=== PATIENT | male | born 1975 | race Caucasian/White ===

== ENCOUNTER 2016-09-24 20:55 | Observation (INO) ==
--- NOTE | 2016-09-24 22:06 | Emergency Department Note ---
Disposition Clinical Impression: Rectal foreign body Qualifiers: Encounter type: initial encounter Qualified Code(s): T18.5XXA - Foreign body in anus and rectum, initial encounter Disposition: Still a Patient Condition: Good Referrals: NO,PCP [Primary Care Provider] - Forms: ED Satisfaction Letter General Adult HPI - General Chief complaint: ED Skin/Abscess/Foreign Body Stated complaint: "Something Stuck in Rectum" Time Seen by Provider: 09/24/16 21:45 Source: patient Limitations: no limitations Nursing Notes Reviewed: Yes Vital Signs Reviewed: Yes - History of Present Illness HPI Narrative: 40-year-old male who reports he has had a remote control stuck in his rectum for approximately 90 minutes. He does report he has some discomfort. He reports he has tried to remove it but has been unsuccessful. Radiation: non-radiation Pain Severity: moderate Pain Scale: 8 Consistency: constant Improves with: nothing Worsens with: nothing Associated symptoms: Reports: denies other symptoms Treatments Prior to Arrival: none - Related Data Previous Rx's Medication Instructions Recorded Buspirone HCl [Buspar] 5 mg PO TID #90 tablet 07/17/16 Gabapentin [Neurontin] 300 mg PO TID #90 capsule 07/17/16 Mirtazapine [Remeron] 15 mg PO HS #30 tablet 07/17/16 Allergies Allergy/AdvReac Type Severity Reaction Status Date / Time No Known Allergies Allergy Verified 07/14/16 16:18 All systems ED: reviewed and negative except as stated. Constitutional: Denies: fever Gastrointestinal: Denies: abdominal pain Musculoskeletal: Denies: back pain Past Medical History - Past Medical History Medical history: Reports: no medical history Surgical history: Reports: non-contributory Psychiatric history: Reports: no psych history - Social History Smoking Status: Current every day smoker Smokeless Tobacco Status: No Alcohol use: Reports: none Drug use: Reports: opiates Physical Exam - General Limitations: no limitations General appearance: alert, in no apparent distress - Head Head exam: atraumatic - Eye Eye exam: Present: normal appearance - ENT ENT exam: normal exam - Neck Neck exam: Present: normal inspection - Chest Chest inspection: Present: normal inspection - Abdominal Exam Abdominal exam: Present: soft, Non-Tender - Extremities Exam Extremities exam: Present: normal inspection - Neurological Exam Neurological exam: Present: alert, oriented X3 - Psychiatric Psychiatric exam: Present: normal affect - Skin Skin exam: Present: warm, dry Course Course Narrative: Rectal exam revealed a remote control foreign body at approximately 4 cm from the anal verge. We will attempt with a anoscope to visualize and if easy access removal. On his exam with the anoscope there was no visualization of the foreign body and he did have a bloody discharge. I initially called general surgery Dr. Conley who requested that I call endoscopy. I then called Dr. Huerta who stated that he would come in with the endoscopy team for removal. He did not request any labs or imaging at this time. He has no peritonitis on physical exam. Will sign out this patient to the night team while waiting for endoscopy arrival. Vital Signs Temperature 98.5 F 09/24/16 21:04 Pulse Rate 106 09/24/16 21:04 Respiratory Rate 20 09/24/16 21:04 Blood Pressure 136/81 09/24/16 21:04 O2 Sat by Pulse Oximetry 97 09/24/16 21:04 Temperature 98.5 F 09/24/16 21:04 Pulse Rate 106 09/24/16 21:04 Respiratory Rate 20 09/24/16 21:04 Blood Pressure 136/81 09/24/16 21:04 O2 Sat by Pulse Oximetry 97 09/24/16 21:04 Oxygen Delivery Oxygen Delivery Room Air
[2016-09-24] MEDS ORDERED: *HR* FentaNYL (PF) 100 MCG/2 ML VIAL IVP ONE (22:14)
--- NOTE | 2016-09-24 22:17 | Emergency Department Note ---
Disposition Clinical Impression: Rectal foreign body Disposition: Admitted As Inpatient Condition: Good General Adult HPI - General Chief complaint: ED Skin/Abscess/Foreign Body Stated complaint: "Something Stuck in Rectum" Time Seen by Provider: 09/24/16 21:45 Source: patient Limitations: no limitations - History of Present Illness Pain Scale: 8 Improves with: nothing Worsens with: nothing Associated symptoms: Reports: denies other symptoms Treatments Prior to Arrival: none - Related Data Previous Rx's Medication Instructions Recorded Buspirone HCl [Buspar] 5 mg PO TID #90 tablet 07/17/16 Gabapentin [Neurontin] 300 mg PO TID #90 capsule 07/17/16 Mirtazapine [Remeron] 15 mg PO HS #30 tablet 07/17/16 Allergies Allergy/AdvReac Type Severity Reaction Status Date / Time No Known Allergies Allergy Verified 07/14/16 16:18 Constitutional: Denies: fever Gastrointestinal: Denies: abdominal pain Musculoskeletal: Denies: back pain Past Medical History - Past Medical History Medical history: Reports: no medical history Surgical history: Reports: non-contributory Psychiatric history: Reports: no psych history - Social History Smoking Status: Current every day smoker Smokeless Tobacco Status: No Alcohol use: Reports: none Drug use: Reports: opiates Physical Exam - General Limitations: no limitations General appearance: alert, in no apparent distress Course - Reevaluation(s) Reevaluation #1: I saw the patient with the resident, Dr. Casillas. Patient presents with a rectal foreign body. He placed a stereo remote control device in his rectum about an hour and a half ago. He could not get it out. Now is having rectal bleeding. Rectal exam performed with the resident shows that you can feel the foreign body deep in the rectum. We could not directly visualize it with anoscopy as it now appears to be too far in and there was a fair amount of blood obscuring the view. We will contact surgery for removal of this foreign body. Time: 22:17 Vital Signs Temperature 98.5 F 09/24/16 21:04 Pulse Rate 106 09/24/16 21:04 Respiratory Rate 20 09/24/16 21:04 Blood Pressure 136/81 09/24/16 21:04 O2 Sat by Pulse Oximetry 97 09/24/16 21:04 Temperature 97.7 F 09/26/16 07:17 Pulse Rate 60 09/26/16 07:17 Respiratory Rate 17 09/26/16 07:17 Blood Pressure 103/68 09/26/16 07:17 O2 Sat by Pulse Oximetry 98 09/26/16 07:17 Oxygen Delivery Oxygen Delivery Room Air Medical Decision Making - Lab Data Result diagrams: 09/26/16 04:05 09/26/16 04:05 Lab Results 09/24/16 09/24/16 Range/Units 22:51 22:51 WBC 14.8 H (4.3-11.1) K/mcL RBC 4.11 L (4.19-5.50) M/mcL Hgb 13.0 (12.9-16.9) g/dL Hct 38.1 (37.5-50.1) % MCV 92.7 (83.0-100.0) fL MCH 31.6 (28.0-33.3) pg MCHC 34.1 (31.6-35.5) g/dL RDW 12.9 (11.5-14.5) % Plt Count 269 (140-400) K/mcL MPV 10.1 (9.4-12.4) fL Immature Gran % 0.3 (0-4) % Seg Neutrophils % 78.6 % Lymphocytes % 13.8 % Monocytes % 6.3 % Eosinophils % 0.6 % Basophils % 0.4 % Neutrophils # 11.6 H (1.6-8.9) K/mcL Lymphocytes # 2.0 (0.6-4.6) K/mcL Monocytes # 0.9 (0.0-1.3) K/mcL Eosinophils # 0.1 (0.0-0.6) K/mcL Basophils # 0.1 (0.0-0.2) K/mcL Sodium 140 (136-145) mEq/L Potassium 3.5 (3.5-4.5) mEq/L Chloride 108 (98-109) mEq/L Carbon Dioxide 21 (19-29) mEq/L BUN 19 (8-26) mg/dL Creatinine 1.25 (0.72-1.25) mg/dL Est GFR ( Amer) > 60 (> 60) Est GFR (Non-Af Amer) > 60 (> 60) BUN/Creatinine Ratio 15 (6-26) Glucose 109 H (70-99) mg/dL Calculated Osmolality 293 (280-300) Calcium 9.1 (8.6-10.8) mg/dL C-Reactive Protein 0 (Less than 5) mg/L TSH 4.041 (0.350-4.840) mcIU/mL Free T4 0.88 (0.70-1.48) ng/dl Free T3 3.30 (1.71-3.71) pg/mL Attestation Statement - Attestation Attestation: I, Dr. Zimmerman, examined this patient [id number] and my medical decision- making was reviewed with Dr. Casillas, Resident Physician. I agree with the documented findings, disposition and treatment plan as described except to the extent set forth below. Please see my progress note for details.
[2016-09-24] MEDS ORDERED: Metoclopramide 10 MG/2 ML VIAL IVP ONE (22:59)
[2016-09-24 23:00] LABS: Basophils # 0.1 K/mcL (0.0-0.2); Basophils % 0.4 %; Eosinophils # 0.1 K/mcL (0.0-0.6); Eosinophils % 0.6 %; Hematocrit 38.1 % (37.5-50.1); Immature Granulocytes % 0.3 % (0-4); Lymphocytes % 13.8 %; Mean Corpuscular HGB Conc 34.1 g/dL (31.6-35.5); Mean Corpuscular Hemoglobin 31.6 pg (28.0-33.3); Mean Corpuscular Volume 92.7 fL (83.0-100.0); Mean Platelet Volume 10.1 fL (9.4-12.4); Monocytes # 0.9 K/mcL (0.0-1.3); Monocytes % 6.3 %; Neutrophils # 11.6 K/mcL (1.6-8.9); Platelet Count 269 K/mcL (140-400); Red Blood Count 4.11 M/mcL (4.19-5.50); Red Cell Distribution Width 12.9 % (11.5-14.5); Segmented Neutrophils % 78.6 %
--- NOTE | 2016-09-24 23:12 | Anesthesia Evaluation PreOp ---
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 Maintained on Buspar, Remeron, Gabapentin) Other Medical History: Denies Any Significant HX Anesthesia History: No Prior Anesthetic Complications, Past Anesthesia (Dental Extractions) Alcohol Use: none Drug use: opiates Medications and Allergies Buspirone HCl [Buspar] 5 mg PO TID #90 tablet 07/17/16 [Rx] Gabapentin [Neurontin] 300 mg PO TID #90 capsule 07/17/16 [Rx] Mirtazapine [Remeron] 15 mg PO HS #30 tablet 07/17/16 [Rx] Allergies No Known Allergies Allergy (Verified 07/14/16 16:18) - Meds/Allergy Pre-op Review Medications Reviewed: Yes Allergies Reviewed: Yes Beta Blockers on Current Med List: No Anesthesia Results - Labs 09/24/16 22:51 09/24/16 22:51 Anesthesia Exam Vital Signs Temp Pulse Resp BP Pulse Ox 09/24/16 22:32 97 16 122/90 99 09/24/16 21:04 98.5 F 106 20 136/81 97 Intake and Output 09/24/16 09/24/16 09/24/16 07:59 15:59 23:59 Other: Weight 54.431 kg Patient Weight 09/24/16 23:59 Weight 54.431 kg Weight: 122# NPO (# of Hours): 1830 - HEENT Pupil (Motor): Pupils equal, EOMI Mallampati: II Teeth: Edentulous Oral Opening: Greater than 3 - 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 LOC: Oriented 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 Esdras Dorman MD
[2016-09-24 23:14] LABS: BUN/Creatinine Ratio 15 (6-26); Blood Urea Nitrogen 19 mg/dL (8-26); Calcium 9.1 mg/dL (8.6-10.8); Carbon Dioxide 21 mEq/L (19-29); Chloride 108 mEq/L (98-109); Glucose 109 mg/dL (70-99); Osmolality,Calculated 293 (280-300); Potassium 3.5 mEq/L (3.5-4.5); Sodium 140 mEq/L (136-145); eGFR For African Americans > 60 (> 60); eGFR For Non-African Americans > 60 (> 60)
[2016-09-24] MEDS ORDERED: Metoclopramide 10 MG/2 ML VIAL ONE (23:24)
[2016-09-24] MEDS ORDERED: Famotidine 20 MG/2 ML VIAL ONE (23:24)
[2016-09-24] MEDS ORDERED: Acetaminophen IV 1,000 MG/100 ML INFUS..BTL ONE (23:24)
[2016-09-24] MEDS ORDERED: *HR* Succinylcholine 200 MG/10 ML VIAL IVP ONE (23:44)
[2016-09-24] MEDS ORDERED: Lidocaine -MPF 2% 2 ML VIAL ONE (23:44)
[2016-09-24] MEDS ORDERED: Lidocaine -MPF 4% 5 ML AMPUL ONE (23:44)
[2016-09-24] MEDS ORDERED: *HR* Midazolam HCl 2 MG/2 ML VIAL ONE (23:45)
[2016-09-24] MEDS ORDERED: *HR* FentaNYL (PF) 100 MCG/2 ML VIAL ONE (23:45)
[2016-09-24] MEDS ORDERED: *HR* Propofol 200 MG/20 ML VIAL IVP ONE (23:45)
[2016-09-25] MEDS ORDERED: Ringers Solution, Lactated 1,000 ML IVC SCH (00:15)
[2016-09-25] MEDS ORDERED: Dexamethasone 4 MG/ML VIAL ONE (00:53)
[2016-09-25] MEDS ORDERED: Ondansetron 4 MG/2 ML VIAL ONE (00:53)
[2016-09-25] MEDS ORDERED: MetroNIDAZOLE 500 MG/100 ML 500 MG/100 ML BAG IVPB ONE (01:00)
[2016-09-25] MEDS ORDERED: *HR* Phenylephrine 10 MG/ML VIAL ONE (01:06)
[2016-09-25] MEDS ORDERED: *HR* HYDROmorphone 2 MG/ML SYRINGE ONE (01:09)
[2016-09-25] MEDS ORDERED: Gabapentin 300 MG CAPSULE ONE (01:52)
--- NOTE | 2016-09-25 01:58 | Anesthesia Evaluation Post Op ---
Date of Encounter: 09/25/16 Time of Encounter: 01:57 - Vital Signs Vital Signs: Vital Signs/O2 Sat/Glucose, Most Current Temp Pulse Resp BP Pulse Ox 09/25/16 01:49 89 12 107/73 99 09/25/16 01:39 88 10 101/63 100 09/25/16 01:29 99.6 F 88 10 99/60 100 09/24/16 23:55 98.5 F 96 16 123/91 96 09/24/16 23:47 16 116/82 09/24/16 22:32 97 16 122/90 99 - Lungs Lungs: Clear Ascult./Percussion - Airway Airway: Non-obstructed - Cardiovascular Regular Rate - Mental Status Mental Status: Alert & Oriented, Answers Appropriately - Pain Pain Scale: 3 Pain Scale used: Numeric (1 - 10) - Nausea Vomiting Nausea Vomiting: Not Present - Hydration Hydration: Ice chips, Has not voided - Discharge PostOp Status: Transfer Patient to floor Anes Supervising Prov Stmt: Pt seen/evaluated, vSS and pt has met criteria for discharge to floor. - MD Lakia
[2016-09-25] MEDS ORDERED: *HR* LORazepam 2 MG/ML VIAL IVP PRN (06:02)
[2016-09-25] MEDS ORDERED: Ketorolac 30 MG/ML VIAL IVP STA (06:02)
[2016-09-25] MEDS ORDERED: Haloperidol Lactate 5 MG/ML VIAL IVP PRN (06:02)
[2016-09-25] MEDS ORDERED: Naloxone 0.4 MG/ML INJ IVP PRN (06:02)
[2016-09-25] MEDS ORDERED: *HR* HYDROmorphone (PF) 1 MG/ML SYRINGE IVP PRN (06:02)
[2016-09-25] MEDS ORDERED: Scopolamine Patch 1.5 MG PATCH.TD72 TD ONE (06:02)
[2016-09-25] MEDS ORDERED: Acetaminophen 325 MG TABLET PO PRN (06:02)
[2016-09-25] MEDS ORDERED: *HR* Belladonna Alkaloids/Opium 60 MG RECTAL SUPPOSITORY RC STA (06:02)
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
[2016-09-25 07:04] LABS: Thyroid Stimulating Hormone 4.041 mcIU/mL (0.350-4.840)
[2016-09-25] MEDS: Pantoprazole 40 MG VIAL IVP SCH (08:30)
[2016-09-25] MEDS: Nicotine 21 MG PATCH.TD24 TD SCH (08:30)
[2016-09-25] MEDS: *HR* OxyCODONE Immed Rel 5 MG TABLET PO PRN ×3 (08:32→21:40)
[2016-09-25] MEDS: *HR* Promethazine 25 MG/ML VIAL IVP SCH ×5 (08:40→23:38)
[2016-09-25] MEDS: Ringers Solution, Lactated 1,000 ML IVC SCH ×2 (08:40→21:42)
[2016-09-25 10:11] LABS: C-Reactive Protein 0 mg/L (Less than 5)
--- NOTE | 2016-09-25 11:03 | Gastroenterology Consult Note ---
<Haja Fitzgerald Donna - Last Filed: 09/25/16 11:01> Date of Encounter: 09/25/16 Time of Encounter: 10:15 - Assessment and plan (1) Rectal foreign body Current Visit: Yes Status: Acute Assessment and plan: Removal of foreign body successful, per Dr. Huerta. CT A/P shows ovoid hyperdense area in the rectum likely reflects known nonmetallic retained foreign body. The foreign body measures approximately 2.5 cm in length and is located 45 cm from the anus. There is rectal mural thickening and surrounding inflammatory changes. No free intra-abdominal air. Repeat KUB. Dr. Huerta to review imaging. Qualifiers: Encounter type: initial encounter Qualified Code(s): T18.5XXA - Foreign body in anus and rectum, initial encounter (2) Lower abdominal pain Current Visit: Yes Status: Acute Assessment and plan: Secondary to foreign object in rectum. - Time Spent With Patient Total time spent is greater than 50% in coordination of care (as documented) at patient's floor/unit and/or counseling patient: GI History of Present Illness - Data of Consult Patient: new to practice Consult date: 09/25/16 Requesting Physician: Kong Scherer MD - Consult Narrative Reason for consult: Foreign body History of present illness: Mr. Buchanan is a 40 year old male who presented to the ED with a remote control stuck in rectum. He states the remote control was the only foreign object inserted. Pt states he was "being stupid". His attempts to remove the foreign body were unsuccessful. In the ER, exam with anoscope there was no visualization of the foreign body. Dr. Huerta was consulted for removal. Procedures: None NSAIDs: None Anticoagulation: None Past Med Surg Social Fam HX - Past Medical History Medical history: no medical history Psychiatric history: anxiety, depression, other - Past Surgical History Surgical History: other - Social History Smoking Status: Current every day smoker Packs per day: 1ppd (x20yrs) Smokeless Tobacco Status: Yes Alcohol use: none Drug use: opiates, other - Family History Father Living Status: Still Living Hx Family Cardiac Disorders: Yes (NH, CVA) Hx Family Respiratory Disorders: No Hx Family Cancer: No Hx Family GI Disorders: No Hx Family Genitourinary Disorders: No Hx Family Endocrine Disorder: No Hx Family Musculoskeletal Disorders: No Hx Family Neuromuscular Disorders: No Hx Family Neurologic Disorders: No Hx Family HEENT Disorders: No Hx Family Autoimmune Disorders: No Hx Family Reproductive Disorders: No Hx Family Psychosocial Disorders: No Hx Family Medical Disorders: No Maternal Grandmother Hx Family Cardiac Disorders: No Hx Family Respiratory Disorders: No Hx Family Cancer: No Hx Family GI Disorders: No Hx Family Genitourinary Disorders: No Hx Family Endocrine Disorder: No Hx Family Musculoskeletal Disorders: No Hx Family Neuromuscular Disorders: No Hx Family Neurologic Disorders: Yes (Parkinsons) Hx Family HEENT Disorders: No Hx Family Autoimmune Disorders: No Hx Family Reproductive Disorders: No Hx Family Psychosocial Disorders: No Hx Family Medical Disorders: No - Gastrointestinal Gastrointestinal: Present: as per HPI - Constitutional Constitutional: as per HPI - EENT Eyes: as per HPI Ears: Present: as per HPI Nose, mouth and throat: Present: as per HPI - Cardiovascular Cardiovascular ROS: Present: as per HPI - Respiratory Respiratory IM: Present: as per HPI - Genitourinary Genitourinary: Absent: change in color, Urinary frequency - Neurological ROS Neurological GI: Present: as per HPI - Hematologic/Lymphatic Hematologic/Lymphatic pediatric: Present: as per HPI - Musculoskeletal Musculoskeletal ROS GI: Present: as per HPI - Integumentary Integumentary GI: Present: as per HPI - Psychiatric ROS Psychiatric GI: Present: as per HPI - Endocrine Endocrine IM: Present: as per HPI - Constitutional Vitals: Temp Pulse Resp BP Pulse Ox 98.1 F 73 18 108/72 98 09/25/16 07:11 09/25/16 07:11 09/25/16 07:11 09/25/16 07:11 09/25/16 07:11 General appearance: Present: cooperative, A&O X 3, no acute distress, answers questions appropriately - Head Head exam: Present: atraumatic, normocephalic - Eye Eye exam: Present: normal appearance, sclera anicteric - ENT ENT exam: Present: mucous membranes moist - Neck Neck exam general surgery: Present: normal inspection, trachea midline - Respiratory Respiratory exam: Present: CTAB. Absent: rales, rhonchi - Cardiovascular Cardiovascular exam: Present: RRR, +S1, +S2 - GI/Abdominal GI/Abdominal exam: Present: soft, tenderness (lower abdomen), no peritoneal signs. Absent: distended, firm, guarding - Rectal Rectal exam: Present: deferred - Extremities Exam Extremities exam: Present: warm - Neurological Exam Neurological exam: Present: no focal deficits - Psychiatric Psychiatric exam: Present: normal affect, normal mood - Skin Skin exam: Present: dry, intact, normal color, warm Results - Labs CBC & Chem 7: 09/24/16 22:51 09/24/16 22:51 Labs: Last Result Calcium 9.1 mg/dL (8.6-10.8) 09/24/16 22:51 C-Reactive Protein 0 mg/L (Less than 5) 09/24/16 22:51 Entire Visit Hgb 13.0 g/dL (12.9-16.9) 09/24/16 22:51 Hct 38.1 % (37.5-50.1) 09/24/16 22:51 - Impressions Impressions KUB X-Ray 09/25/16 00:19 IMPRESSION: Foreign body in the pelvis consistent with a rectally inserted object D/ / Jhonathan Ballard MD / Jhonathan Ballard MD Interpreting Provider: Jhonathan Ballard MD Abdomen/Pelvis CT 09/25/16 06:02 IMPRESSION: Ovoid, hyperdense area in the rectum likely reflects known nonmetallic retained foreign body. The foreign body measures approximately 2.5 cm in length and is located 4-5 cm from the anus. There is rectal mural thickening and surrounding inflammatory changes. No free intra-abdominal air. Findings were discussed with Dr. Higginbotham at 7:19 a.m. on 09/25/2016. D/ / 09/25/2016 07:18:29 Ivana Reeves MD / [email or web address] Interpreting Provider: Ivana Reeves MD Consult Discharge Plan - Plan Referrals: NO,PCP [Primary Care Provider] - <Clint Huerta - Last Filed: 09/25/16 14:08> Date of Encounter: 09/25/16 Time of Encounter: 13:00 - Time Spent With Patient Total time spent is greater than 50% in coordination of care (as documented) at patient's floor/unit and/or counseling patient: GI History of Present Illness - Data of Consult Requesting Physician: Kong Scherer MD - Consult Narrative History of present illness: Mr. Buchanan is a 40 year old male - Constitutional Vitals: Temp Pulse Resp BP Pulse Ox 98.0 F 68 17 89/50 98 09/25/16 11:57 09/25/16 11:57 09/25/16 11:57 09/25/16 11:57 09/25/16 11:57 Results - Labs CBC & Chem 7: 09/24/16 22:51 09/24/16 22:51 Labs: Last Result Calcium 9.1 mg/dL (8.6-10.8) 09/24/16 22:51 C-Reactive Protein 0 mg/L (Less than 5) 09/24/16 22:51 Entire Visit Hgb 13.0 g/dL (12.9-16.9) 09/24/16 22:51 Hct 38.1 % (37.5-50.1) 09/24/16 22:51 - Impressions Impressions KUB X-Ray 09/25/16 00:19 IMPRESSION: Foreign body in the pelvis consistent with a rectally inserted object D/ / Jhonathan Ballard MD / Jhonathan Ballard MD Interpreting Provider: Jhonathan Ballard MD Abdomen/Pelvis CT 09/25/16 06:02 IMPRESSION: Ovoid, hyperdense area in the rectum likely reflects known nonmetallic retained foreign body. The foreign body measures approximately 2.5 cm in length and is located 4-5 cm from the anus. There is rectal mural thickening and surrounding inflammatory changes. No free intra-abdominal air. Findings were discussed with Dr. Higginbotham at 7:19 a.m. on 09/25/2016. D/ / 09/25/2016 07:18:29 Ivana Reeves MD / [email or web address] Interpreting Provider: Ivana Reeves MD X-Ray 09/25/16 09:25 IMPRESSION: No acute findings, however, the rectum is obscured due to contrast material within the bladder. If there remains concern for residual foreign body, recommend a repeat view following emptying of bladder versus lateral view. D/ / 09/25/2016 13:01:43 Viviane Reeves MD / [email or web address] Interpreting Provider: Viviane Reeves MD - Attending Attestation I examined this patient and my medical decision-making was reviewed with the ENVIRONMENTAL MAINTENANCE WORKER/PA/Advanced Practice Nurse/Resident Physician. I agree with the documented findings, disposition and treatment plan as described except to the extent set forth below. Scan and other imaging reviewed with the radiologist. No definite retained foreign body. Patient still has pain in his lower abdomen but per patient pain is getting better. We will continue IV antibiotics. Clear liquid today.
[2016-09-25] MEDS ORDERED: *HR* Belladonna Alkaloids/Opium 30 MG RECTAL SUPPOSITORY RC PRN (12:00)
--- NOTE | 2016-09-25 15:50 | Event Note ---
Date of Encounter: 09/25/16 Time of Encounter: 15:48 Patient feeling better today. He does have some lower abdominal pain but this is improving. He has not had any bowel movements yet. Has been started on clear liquid diet by gastroenterology. Repeat CT scan done earlier today showed possible foreign body near his rectum. KUB x-ray done does not clearly show any foreign body. Patient does have perirectal inflammation. On IV antibiotics.
[2016-09-25] MEDS: Piperacillin/Tazobactam 3.375 GM in D5% in Water (Mini-Bag+) 100 ML IVPB SCH ×2 (16:55→23:38)
[2016-09-25] MEDS: Gabapentin 300 MG CAPSULE PO SCH (20:29)
[2016-09-25] MEDS ORDERED: Mirtazapine 15 MG TABLET PO SCH (21:00)
[2016-09-26] MEDS: *HR* OxyCODONE Immed Rel 5 MG TABLET PO PRN ×2 (04:24→11:31)
[2016-09-26] MEDS: *HR* Promethazine 25 MG/ML VIAL IVP SCH ×3 (04:27→12:05)
[2016-09-26 04:42] LABS: Basophils % 0.1 %; Eosinophils # 0.1 K/mcL (0.0-0.6); Eosinophils % 0.3 %; Hematocrit 33.2 % (37.5-50.1); Immature Granulocytes % 0.6 % (0-4); Lymphocytes % 13.4 %; Mean Corpuscular HGB Conc 33.1 g/dL (31.6-35.5); Mean Corpuscular Hemoglobin 31.5 pg (28.0-33.3); Mean Corpuscular Volume 95.1 fL (83.0-100.0); Mean Platelet Volume 10.6 fL (9.4-12.4); Monocytes # 1.2 K/mcL (0.0-1.3); Monocytes % 7.7 %; Neutrophils # 11.7 K/mcL (1.6-8.9); Platelet Count 210 K/mcL (140-400); Red Blood Count 3.49 M/mcL (4.19-5.50); Red Cell Distribution Width 13.6 % (11.5-14.5); Segmented Neutrophils % 77.9 %
[2016-09-26 04:54] LABS: BUN/Creatinine Ratio 9 (6-26); Calcium 9.2 mg/dL (8.6-10.8); Carbon Dioxide 26 mEq/L (19-29); Chloride 107 mEq/L (98-109); Glucose 114 mg/dL (70-99); Osmolality,Calculated 293 (280-300); Sodium 142 mEq/L (136-145); eGFR For African Americans > 60 (> 60); eGFR For Non-African Americans > 60 (> 60)
[2016-09-26 04:55] LABS: Blood Urea Nitrogen 8 mg/dL (8-26)
[2016-09-26] MEDS: Gabapentin 300 MG CAPSULE PO SCH (08:50)
[2016-09-26] MEDS: Pantoprazole 40 MG VIAL IVP SCH (08:50)
[2016-09-26] MEDS: Piperacillin/Tazobactam 3.375 GM in D5% in Water (Mini-Bag+) 100 ML IVPB SCH (08:51)
[2016-09-26] MEDS: Nicotine 21 MG PATCH.TD24 TD SCH (08:51)
--- NOTE | 2016-09-26 11:22 | Gastroenterology Progress Note ---
<Haja Fitzgerald - Last Filed: 09/26/16 11:19> Date of Encounter: 09/26/16 Time of Encounter: 10:20 - Assessment and plan (1) Rectal foreign body Status: Acute Assessment and plan: Removal of foreign body successful, per Dr. Huerta. CT A/P shows ovoid hyperdense area in the rectum likely reflects known nonmetallic retained foreign body. The foreign body measures approximately 2.5 cm in length and is located 45 cm from the anus. There is rectal mural thickening and surrounding inflammatory changes. No free intra-abdominal air. No definite foreign body. Continue antibiotics. Abdomen/Pelvis CT 09/25/16 06:02 IMPRESSION: Ovoid, hyperdense area in the rectum likely reflects known nonmetallic retained foreign body. The foreign body measures approximately 2.5 cm in length and is located 4-5 cm from the anus. There is rectal mural thickening and surrounding inflammatory changes. No free intra-abdominal air. Findings were discussed with Dr. Higginbotham at 7:19 a.m. on 09/25/2016. D/ / 09/25/2016 07:18:29 Ivana Reeves MD / [email or web address] Interpreting Provider: Ivana Reeves MD X-Ray 09/25/16 09:25 IMPRESSION: No acute findings, however, the rectum is obscured due to contrast material within the bladder. If there remains concern for residual foreign body, recommend a repeat view following emptying of bladder versus lateral view. D/ / 09/25/2016 13:01:43 Viviane Reeves MD / [email or web address] Interpreting Provider: Viviane Reeves MD Qualifiers: Encounter type: initial encounter Qualified Code(s): T18.5XXA - Foreign body in anus and rectum, initial encounter (2) Lower abdominal pain Status: Acute Assessment and plan: Secondary to foreign object in rectum. - Time Spent With Patient Total time spent is greater than 50% in coordination of care (as documented) at patient's floor/unit and/or counseling patient: - Subjective Interval history: Patient reports feeling better today. He states he had a bowel movement this morning and reports "a little blood". He states his abdominal pain is improved. - Constitutional Vitals: Temp Pulse Resp BP Pulse Ox 97.7 F 60 17 103/68 98 09/26/16 07:17 09/26/16 07:17 09/26/16 07:17 09/26/16 07:17 09/26/16 07:17 General appearance: Present: cooperative, A&O X 3, no acute distress, answers questions appropriately - Head Head exam: Present: atraumatic, normocephalic - Eye Eye exam: Present: normal appearance, sclera anicteric - ENT ENT exam: Present: mucous membranes moist - Neck Neck exam general surgery: Present: normal inspection, trachea midline - Respiratory Respiratory exam: Present: CTAB. Absent: rales, rhonchi - Cardiovascular Cardiovascular exam: Present: RRR, +S1, +S2 - GI/Abdominal GI/Abdominal exam: Present: normal bowel sounds, soft, tenderness (mild tenderness lower abdomen), no peritoneal signs. Absent: distended, firm, guarding - Rectal Rectal exam: Present: deferred - Extremities Exam Extremities exam: Present: warm - Neurological Exam Neurological exam: Present: no focal deficits - Psychiatric Psychiatric exam: Present: normal affect, normal mood - Skin Skin exam: Present: dry, intact, normal color, warm Results - Labs CBC & Chem 7: 09/26/16 04:05 09/26/16 04:05 Labs: Last Result Calcium 9.2 mg/dL (8.6-10.8) 09/26/16 04:05 C-Reactive Protein 0 mg/L (Less than 5) 09/24/16 22:51 Entire Visit Hgb 11.0 g/dL (12.9-16.9) L D 09/26/16 04:05 Hct 33.2 % (37.5-50.1) L 09/26/16 04:05 - Impressions Impressions KUB X-Ray 09/25/16 09:25 IMPRESSION: No acute findings, however, the rectum is obscured due to contrast material within the bladder. If there remains concern for residual foreign body, recommend a repeat view following emptying of bladder versus lateral view. D/ / 09/25/2016 13:01:43 Viviane Reeves MD / [email or web address] Interpreting Provider: Viviane Reeves MD Consult Discharge Plan - Plan Instructions: Ciprofloxacin (By mouth), Metronidazole (By mouth), Rectal Foreign Body (DC) Referrals: NO,PCP [Primary Care Provider] - Clint Huerta MD [Partnered Physician] - (We have requested a follow up appointment with Dr Huerta in 1-2 weeks. The office will call you at home with an appointment date and time.) Prescriptions: Ciprofloxacin [Cipro] 500 mg PO BID #14 tablet MetroNIDAZOLE [Flagyl] 500 mg PO TID #21 tablet <Clint Huerta - Last Filed: 09/29/16 10:09> Date of Encounter: 09/29/16 Time of Encounter: 02:00 - Time Spent With Patient Total time spent is greater than 50% in coordination of care (as documented) at patient's floor/unit and/or counseling patient: - Constitutional Vitals: Temp Pulse Resp BP Pulse Ox 98.1 F 86 17 106/68 97 09/26/16 11:08 09/26/16 11:08 09/26/16 11:08 09/26/16 11:08 09/26/16 11:08 Results - Labs CBC & Chem 7: 09/26/16 04:05 09/26/16 04:05 Labs: Last Result Calcium 9.2 mg/dL (8.6-10.8) 09/26/16 04:05 C-Reactive Protein 0 mg/L (Less than 5) 09/24/16 22:51 Entire Visit Hgb 11.0 g/dL (12.9-16.9) L D 09/26/16 04:05 Hct 33.2 % (37.5-50.1) L 09/26/16 04:05 - Attending Attestation I examined this patient and my medical decision-making was reviewed with the SOCIAL WORKER/PA/Advanced Practice Nurse/Resident Physician. I agree with the documented findings, disposition and treatment plan as described except to the extent set forth below. Pt with Foreign body ( remote control) in rectum s/p removal. CT finding nonspecific now.
[2016-09-26 11:25] VITALS: BP 106/68
--- NOTE | 2016-09-26 13:53 | Discharge Summary ---
Date of Encounter: 09/26/16 Time of Encounter: 14:17 - Discharge Diagnosis (1) Rectal foreign body Priority: Primary Status: Acute Qualifiers: Encounter type: initial encounter Qualified Code(s): T18.5XXA - Foreign body in anus and rectum, initial encounter (2) Lower abdominal pain Priority: Secondary Status: Acute (3) Rectal spasm Priority: Secondary Status: Acute (4) Anxiety disorder Priority: Secondary Status: Chronic Qualifiers: Anxiety disorder type: other mixed anxiety disorder Qualified Code(s): F41.3 - Other mixed anxiety disorders - Discharge Medications Prescriptions: Ciprofloxacin [Cipro] 500 mg PO BID #14 tablet MetroNIDAZOLE [Flagyl] 500 mg PO TID #21 tablet Home Medications: Buspirone HCl [Buspar] 5 mg PO TID #90 tablet 07/17/16 [Rx] Gabapentin [Neurontin] 300 mg PO TID #90 capsule 07/17/16 [Rx] Mirtazapine [Remeron] 15 mg PO HS #30 tablet 07/17/16 [Rx] Ciprofloxacin [Cipro] 500 mg PO BID #14 tablet 09/26/16 [Rx] MetroNIDAZOLE [Flagyl] 500 mg PO TID #21 tablet 09/26/16 [Rx] Allergies/Adverse Reactions: Allergies No Known Allergies Allergy (Verified 07/14/16 16:18) Procedures/tests Complete & Pending: Procedures Performed prior 72 hours Category Date Time Status CT abd pelvis w iv no oral [CT] Stat Cat Scan 09/25/16 06:02 Completed ECG 12 lead ECG [ECG] Routine Y 09/25/16 06:02 Ordered Date of admission: 09/25/16 00:00 Primary care physician: PCP NO Consults: 09/25/16 08:00 Consult to Physician [CONS] Routine Consulting Provider: Clint Huerta Reason for Consult: Patient known to employee relations consultant. Self introduced foreign body within the rectum. Please evaluate and advise Time Notified: 06:10 Call Completed: Yes Discharging clinician: Kong Scherer Anticipated date of discharge: 09/26/16 - Patient Status Disposition: Home, Self-Care Condition: Good Functional capacity at discharge: independent ambulation Overall status at discharge: patient is progressing back to baseline - Discharge Instructions Follow Up With: NO,PCP [Primary Care Provider] - Clint Huerta MD [Partnered Physician] - (in 1-2 weeks) - Diet and Activity Activity: resume usual activities as tolerated Diet: advance to your usual diet Hospital course: Mr. Buchanan is a 40 year old male who was observed in the hospital after presenting with lower abdominal pain and rectal pain related to insertion of a foreign body. He was seen by GI and had colonoscopy with removal of the foreign body. He had extensive inflammation and bleeding on colonoscopy. As such she was started on IV antibiotics. Repeat CT scan of his abdomen showed possible residual foreign body. A KUB x-ray was also done which did not really show any foreign body. The patient is doing much better now. He is having bowel movements that are slightly mixed with blood but improving. This tolerating diet well and is stable to be discharged home. He will complete a course of antibiotics for rectal inflammation. He will follow up with GI in the clinic in 1-2 weeks. - Time Spent with Patient Total time spent providing and/or coordinating discharge services: - Constitutional Vitals: Temp Pulse Resp BP Pulse Ox 98.1 F 86 17 106/68 97 09/26/16 11:08 09/26/16 11:08 09/26/16 11:08 09/26/16 11:08 09/26/16 11:08 General appearance: Present: A&O X 3, no acute distress, underweight, answers questions appropriately - Respiratory Respiratory exam: Present: CTAB. Absent: accessory muscle use, rales, rhonchi, wheezes - Cardiovascular Cardiovascular exam: Present: RRR, +S1, +S2. Absent: diastolic murmur, gallop, rubs, systolic murmur - GI/Abdominal GI/Abdominal exam: Present: normal bowel sounds, soft, no peritoneal signs. Absent: distended, tenderness - Extremities Exam Extremities exam: Present: warm, radial pulses palpable and symetrical. Absent : calf tenderness, cyanotic, pedal edema - Neurological Exam Neurological exam: Present: CN II-XII intact, oriented X3, no focal deficits. Absent: facial droop, speech deficit - Attending Attestation This document has been at least partially created by [employer] recognition technology by Dr. Scherer. Errors in grammar, wording or other phrases may exist. If errors are found after the documentation is signed, they will be addressed individually in the addendum section of this document when appropriate.
== END 2016-09-26 15:30 | disposition home or self-care (01) ==
LOC: EMEROO 20:55 → 3BNU 20:55 → EMEROO 23:48 → 3BNU 23:48 → SUATTDRO 09-25
PROVIDERS: ADMIT Internal Medicine; ATTEND Internal Medicine
PROC: ENDOCFB (2016-09-24 23:45)